=== PATIENT | female | born 1950 | race Caucasian/White ===

== ENCOUNTER 2020-10-21 06:16 | Observation (INO) | payer MEDICARE ==
[~2020-10-21] VITALS: Ht 165.1 cm; Wt 65.8 kg
--- NOTE | ~2020-10-21 | OP ---
[facility] [address] [place] [address] OPERATIVE REPORT Name: SUZAN SERRATOTALISHA Quinonez Room: [address] George#: [id number] Admission: 10/21/20 Attend Phys: Cordell Booth Discharge: Date of : 50 Report #: [id number] THIS REPORT FOR: //name// cc: HUNTER GERMAIN MD Physician not on staff ~ CC: Cordell Booth Physician staff HUNTER GERMAIN DATE OF SERVICE: 10/21/2020 PREOPERATIVE DIAGNOSIS: Paraesophageal hernia. POSTOPERATIVE DIAGNOSIS: Paraesophageal hernia. OPERATION: Laparoscopic repair of paraesophageal hernia with mesh implantation with partial fundoplication. SURGEON: Cordell Booth MD ANESTHESIA: General. ESTIMATED BLOOD LOSS: Minimal. SPECIMEN: None. DESCRIPTION OF PROCEDURE: After informed consent was obtained, the patient was brought to the operating room and placed supine. SCDs were placed and working, preoperative antibiotics were administered, general anesthesia was induced. The abdomen was prepped and draped in the usual sterile fashion. A 1 mm incision was made in the left upper quadrant. Veress needle was inserted and pneumoperitoneum was established. A left periumbilical 10 mm trocar was placed. This was done under direct vision. I then placed 3 more laparoscopic ports under direct vision. An incision was made in the epigastrium and a Patito liver retractor was placed and this retracted the liver anteriorly and superiorly. The patient was placed in the reverse Trendelenburg position. The pars flaccida was incised. She had a large paraesophageal hernia consistent with the preoperative testing. The stomach was then grasped and retracted inferiorly. I incised the peritoneum at the right steven. I then kept incising the peritoneum around the crural opening. The hernia sac was then fully reduced anteriorly and posteriorly. Full reduction was completed. A Meli drain was placed around the distal esophagus for retraction. A cruroplasty was then performed using a 0 V-Loc suture. This brought the crura together nicely. I then inserted two 1 cm pledgets of Phasix mesh. They were placed on each side of the [place]ura [place] [address] OPERATIVE REPORT Name: JANICE SERRATO Room: [address] Preet.#: [id number] Admission: 10/21/20 Attend Phys: Cordell Booth Discharge: Date of : 50 Report #: [id number] placed a 2-0 Ethibond suture through the pledgets and through the crura and then this was tied down to further reinforce the hiatal repair. The short gastric vessels were then ligated using the LigaSure device. There was excellent hemostasis. The fundus of the stomach was then brought posteriorly around the stomach. A 270-degree partial wrap was then undertaken. Two bites were taken on each side of the esophagus. Two sutures were placed, taking esophagus and then the fundus of the stomach. Again, this was a 270-degree wrap. The Newberry drain was then removed. The liver was then placed back into its anatomic position. The fascia at the 10 mm incision was closed with a abgicd-by-pvwpe 0 Vicryl. Skin was closed with 4-0 Monocryl. Sterile dressings were applied. COMPLICATIONS: None. DISPOSITION: The patient was taken to recovery in satisfactory condition. By: [id number] 1100Jowellington Booth MD /nt
[~2020-10-21 06:16] MED LIST: LEVOTHYROXINE112 MCG PO; PROTONIX40 M2 PO; SERTRALINE HCL50 MG PO; SIMVASTATIN40 MG PO
[2020-10-21 06:56] LABS: HEMATOCRIT 40.1 % (37.0-47.0); HEMOGLOBIN 13.4 gm/dL (12.0-15.0); MCH 29.4 pg (26.0-34.0); MCHC 33.4 g/dL (28.0-37.0); MCV 87.9 fL (80.0-100.0); MPV 7.4 fl. (7.2-11.1); RBC 4.57 mil/uL (4.20-5.00); RDW-CV 13.8 % (10.5-14.5); WBC 7.2 thou/uL (4.0-11.0)
[2020-10-21 07:14] LABS: CALCIUM 8.7 mg/dL (8.5-10.1); CREATININE 1.1 mg/dL (0.6-1.3); POTASSIUM 4.1 mmol/L (3.5-5.1)
[2020-10-21 07:15] VITALS: BP 123/77
[2020-10-21 12:17] VITALS: BP 104/52
[2020-10-21 16:22] VITALS: BP 101/56
--- NOTE | 2020-10-21 16:40 | EKG ---
[place] [address] ELECTROCARDIOGRAM REPORT Name: JANICE SERRATO Room: [address]R.#: [id number] Admission: 10/21/20 Attend Phys: Cordell Tucker Discharge: Date of : 50 Date of Service: 10/21/20 0705 Report #: [id number] THIS REPORT FOR: //name// [facility] Test Date: 2020-10-21 Test Time: 07:05:22 Pat Name: JANICE CONLEYPER Department: Room: [facility] Gender: F Boom Operator: HONEY ALVAREZ : 1950 Requested By: Cordell Booth Order Number: [id number] Emanuel MD: Sarmad Rogers Measurements Intervals [place] Rate: 66 P: 50 UT: 178 QRS: 57 QRSD: 89 T: 43 QT: 397 QTc: 416 Interpretive Statements Sinus rhythm No previous ECG available for comparison Electronically Signed On 10-21-2020 16:40:40 FIXING MACHINE OPERATOR by Sarmad Rogers [email or web address] <ELECTRONICALLY SIGNED> By: Sarmad Rogers MD, [facility] 10/21/20 1640 4 4 Sarmad Rogers MD, FACC /EPI
--- NOTE | 2020-10-21 18:52 | NUR ---
A & O X 4, PWD. TOLERATING CLEAR LIQ DIET WITHOUT NAUSEA AND VOMITING. HAD LAP HERNIA REPAIR WITH 6 STAB WOUND SITES. ALL WITH STERI STRIPS ATTACHED. WELL APPROXIMATED. CALF SCD'S ON REHAN LEGS. NS AT 50MLS/HR VIA LEFT FA IV. C/O ABD PAIN 5/10 MORPHINE 2MG GIVEN ORDERED. CALL LIGHT WITHIN REACH. UP TO COMMODE WITH STAND BY ASSIST. WILL CONTINUE TO MONITOR.
[2020-10-21 21:36] VITALS: BP 104/58
[2020-10-22 00:26] VITALS: BP 101/58
[2020-10-22 04:00] VITALS: BP 107/65
--- NOTE | 2020-10-22 12:42 | NUR ---
Pt is A&O. Resides at home with her fiance. Normally active and independent. No DME. Hx of HH in April post hip fx. No hx of SNF. Pt plans to dc to her dtr's home at dc, no needs.
[2020-10-22 13:13] VITALS: BP 107/65
--- NOTE | 2020-10-22 14:00 | NUR ---
PATIENT DISCHARGED FROM UNIT AT 1552. ALERT AND ORIENTED X 4. VITAL SIGNS STABLE ON ROOM AIR. PAIN BEING MANAGED WITH PAIN MEDICATION. DENIES NAUSEA AT THIS TIME. TOLERATING DIET. DISCHARGE INSTRUCTIONS, MEDICATION INFORMATION, AND SCRIPTS GIVEN TO PATIENT. LEFT WITH ALL BELONGINGS. PATIENT LEFT WITH DAUGHTER VIA CAR.
== END 2020-10-22 13:52 | disposition home or self-care (01) ==
LOC: M.TBA 06:16 → M.PRE 09:39 → M.3W 12:18
PROVIDERS: ADMIT Surgery; ATTEND Surgery
DX: K44.9 Diaphragmatic hernia without obstruction or gangrene (principal); K21.9 Gastro-esophageal reflux disease without esophagitis; E78.00 Pure hypercholesterolemia, unspecified; E03.9 Hypothyroidism, unspecified; F32.9 Major depressive disorder, single episode, unspecified; Z79.899 Other long term (current) drug therapy